=== PATIENT | female | born 1975 | race Caucasian/White ===

== ENCOUNTER 2016-04-29 05:34 | Day surgery (SDC) | payer OTHER ==
[2016-04-29] VITALS (11 sets, daily range): BP systolic 102–116; BP diastolic 63–78; PULSE 64–108; RESP 12–22; Ht 165.1 cm; Wt 61.2 kg
[~2016-04-29] VITALS: Ht 165.1 cm; Wt 61.2 kg
[~2016-04-29 05:34] MED LIST: PREN-52
[2016-04-29] MEDS ORDERED: POVIDONE IODINE 10% 28.4 GM OINT ONE (06:32)
[2016-04-29] MEDS ORDERED: ROCURONIUM 50 MG INJ ONE (07:12)
[2016-04-29] MEDS ORDERED: MIDAZOLAM 1 MG/ML 2 ML INJ ONE ×2 (07:12)
[2016-04-29] MEDS ORDERED: PROPOFOL 20 ML ONE (07:12)
[2016-04-29] MEDS ORDERED: HYDROmorphONE 2 MG/ML SYG ONE (07:12)
[2016-04-29] MEDS ORDERED: ROPIVACAINE 0.5 % 30 ML VIAL ONE (07:15)
[2016-04-29] MEDS ORDERED: OMEP20CA16 PO (07:23)
[2016-04-29] MEDS ORDERED: KETOROLAC 30 MG INJ ONE (08:51)
[2016-04-29] MEDS ORDERED: CEFAZOLIN 1 GM INJ ONE (08:51)
[2016-04-29] MEDS ORDERED: METOCLOPRAMIDE 10 MG INJ ONE (08:51)
[2016-04-29] MEDS ORDERED: ONDANSETRON 4 MG INJ ONE (08:51)
[2016-04-29] MEDS ORDERED: DEXAMETHASONE 4 MG/ML 1 ML INJ ONE (08:51)
[2016-04-29] MEDS ORDERED: ACETAMINOPHEN 1000MG/100ML IV 100 ML ONE (08:51)
[2016-04-29] MEDS ORDERED: PHENYLephrine (100 MCG/ML) 5ML SYG ONE (08:51)
[2016-04-29] MEDS ORDERED: POLYMYXIN/BACITRACIN 1L IRRIG ONE (09:44)
[2016-04-29] MEDS ORDERED: NEOSTIGMINE 3 MG/3 ML SYRINGE ONE (10:32)
[2016-04-29] MEDS ORDERED: GLYCOPYRROLATE 0.4 MG INJ ONE (10:32)
[2016-04-29] MEDS ORDERED: morphine (1 MG/ML) 10ML SYRINGE IV PRN ×3 (11:00)
[2016-04-29] MEDS ORDERED: METOCLOPRAMIDE 10 MG INJ IV PRN (11:00)
[2016-04-29] MEDS ORDERED: DIPHENHYDRAMINE 50 MG INJ IV PRN (11:00)
[2016-04-29] MEDS ORDERED: MEPERIDINE 25 MG INJ IV PRN (11:00)
[2016-04-29] MEDS ORDERED: FENTAnyl 50 MCG/ML VIAL IV PRN ×3 (11:00)
[2016-04-29] MEDS ORDERED: HYDROmorphONE (0.2 MG/ML) 10ML SYG IV PRN ×3 (11:00)
[2016-04-29] MEDS ORDERED: ONDANSETRON 4 MG INJ IV PRN (11:00)
[2016-04-29] MEDS ORDERED: EPHEDrine SULFATE 50 MG/5 ML SYG IV PRN (11:00)
--- NOTE | 2016-04-29 11:03 | HPN ---
Date/Time of Note Date/Time of Note DATE: 04/29/16 TIME: 07:02 Interval H&P Admission Note Pt. seen H&P reviewed: No system changes WALDEMAR SERRANO MD Apr 29, 2016 11:03
[2016-04-29] MEDS ORDERED: morphine 2 MG INJ IV PRN (11:30)
--- NOTE | 2016-04-29 15:54 | OPR ---
Date/Time of Note Date/Time of Note DATE: 04/29/16 TIME: 15:49 Operative Report Free Text/Dictation Procedure Date: 04/29/2016 Preoperative Diagnosis 1. Right ankle soft tissue impingement, synovitis and scar tissue. 2. Right ankle chronic lateral instability. 3. 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 Right ankle soft tissue impingement, synovitis and scar tissue. 2. Right ankle chronic lateral instability. 3. 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 Arthroscopy of the Right ankle with extensive debridement. 2. Arthroscopic microfracture of the tibial plafond 3. Modified Brostrom-Jacobsen reconstruction of the right ankle lateral ligament. 4. Application of platelet-rich plasma to the Right ankle and to the lateral ankle ligaments. Surgeon: WALDEMAR SERRANO MD Insurance Adjuster: JOSEFA CHAVEZ C-RNFA Anesthesia: general, other (popliteal block) Tourniquet Time: 74 min at 250 mm Hg Estimated Blood Loss: minimal Complications: None Pt Condition Post Procedure: stable Disposition: PACU Indications Patient is a 40 year female with history of multiple ankle sprains with feeling of instability and mri documenting tibial ocd lesion. 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 The patient was then brought to the operative theater and placed supine on the operative table. The patient was then given a popliteal block. The patient was then given general anesthesia and 2 grams of Ancef were given intravenously. Her exam also revealed increased laxity and was consistent with anterolateral instability. However, it was less consistent with anteromedial instability. The right thigh was secured in the thigh lorenz. Arms were carefully padded. The right leg was then prepped and draped in the usual manner and time out was taken. All parties in the room agreed it was the correct patient, correct extremity and correct procedure. Superficial peroneal nerve had been marked out. A soft tissue distraction strap was applied across the ankle and a soft tissue dissection was then placed across the ankle at approximately 30 pounds of force. Attention was then turned to the ankle joint and using a typical anterior medial and anterolateral portal with care to avoid injury to the neurovascular structures. A 21 point ankle exam was completed revealing significant anterior lateral synovitis with lateral and medial gutter synovitis and scar tissue formation. There was a hemorrhagic nodule seen in the lateral gutter as well as evidence of anterior tibial osteophyte overhang. The significant amount of scar tissue was thoroughly debrided. The distal tibial anterior overhang was excised with a robert and smoothed down with a shaver. Extensive synovitis and scarring was seen on the medial and lateral malleolar/ talar articulation as well as scarring along the distal tibia and lateral gutters and anterior gutter. The articular surface was smooth and glistening anteriorly, centrally and posteriorly. The posterior ligaments had a partial injury to them; however, the transverse ligament was intact as well as the posterior inferior tibiofibular ligament. The lateral ankle ligaments were scarred and consistent with the previous history. The posterior gutter, medial and lateral gutters were debrided and a posterolateral hemorrhagic synovitic nodule was removed. A anterolateral central tibial OCD lesion measuring 3 x 3 mm was seen. The lesion was thoroughly debrided with curettes. Once all scar tissue was debrided and complete debridement was then done the ankle was washed out thoroughly. Microfracture was then performed at this lesion, water was turned off showing fatty stem cell filled droplets The patient was then repositioned and gown and gloves were changed. The ankle was then reprepped and draped with all new instruments used. A longitudinal incision was made from several centimeters above the tip of the fibula to several centimeters distal towards the sinus tarsi. The incision was carried down to subcutaneous tissue. Flaps were made medially and laterally and extensor retinaculum was identified and lifted up. Incision was made in the peroneal tendons. The peroneal tendon sheath was opened up with no tear noted. There was mild tenosynovitis which was debrided. The anterior talofibular ligament was identified. A Katiana was placed underneath it and incision was made around it leaving a cuff on the fibula as it was released. The calcaneofibular ligament was injured and was felt to be necessary to repair. The lateral gutter was debrided further and 2-0 PDS was used to do the initial onglp-kuhg-[id number] suture of the ATFL and CFL and then 0 FiberWire was used for the remaining sutures in the spabj-svxp-[id number] fashion. An Arthrex internal brace was placed in the talus. The posterior drawer was placed on the ankle with a bolster on the calf and ankle was placed in neutral position and sequentially each suture was tied from posterior to anterior. Once we were done , the ankle was stable and had good range of motion. The internal brace was then placed under controlled tension to the fibula with a 2.7 swivellock. The wound was irrigated thoroughly with antibiotic solution and the extensor retinaculum was then advanced with 3-0 PDS in a hgwah-gqoa-zjzu fashion. Bleeders were coagulated, wounds irrigated with antibiotic solution and the wounds were then closed with 3-0 Monocryl then a 4-0 Monocryl in a running fashion and steri strip. PRP was then applied that was spun down to approximately 2% Hct to the ankle joint and 7% hematocrit from the Arthrex Flynn System to the Brostrom Jacobsen repair site. Compression dressings were then applied. The compression dressings were then soaked in platelet-poor plasma and then wrapped with Soft-Roll and 5 ABDs. The patient was placed in a short leg cast in a neutral position. At the end of the procedure all sponge and needle counts were correct. The patient tolerated procedure well without complication and taken to the recovery room. WALDEMAR SERRANO MD Apr 29, 2016 15:54
== END 2016-04-29 12:49 | disposition home or self-care (01) ==
LOC: SDS 05:34
PROVIDERS: ATTEND Orthopaedic Surgery
DX: M25.871 Other specified joint disorders, right ankle and foot (principal); M25.371 Other instability, right ankle; M93.271 Osteochondritis dissecans, right ankle and joints of right foot; F41.8 Other specified anxiety disorders
CPT/HCPCS: 29892; 29898; J0131; J0690; J1100; J1170; J1885; J2250; J2370; J2405; J2710; J2765; J2795